=== PATIENT | male | born 1975 | race African-American/Black ===

== ENCOUNTER 2019-07-19 22:35 | Emergency (ER) | payer SELFPAY ==
[2019-07-19] MEDS ORDERED: KETOROLAC TROMETHAMINE 60 MG/2 ML VIAL ONE (22:47)
== END 2019-07-19 23:18 | disposition home or self-care (01) ==
LOC: EDH 22:35
DX: S90.31XA Contusion of right foot, initial encounter (principal); W23.0XXA Caught, crushed, jammed, or pinched between moving objects, initial encounter; Y93.89 Activity, other specified; Y92.098 Other place in other non-institutional residence as the place of occurrence of the external cause; Y99.8 Other external cause status
CPT/HCPCS: 73630; 96372; 99284; J1885

== ENCOUNTER 2019-07-21 22:43 | Inpatient (IN) | payer SELFPAY ==
[~2019-07-21] VITALS: Ht 185.4 cm; Wt 90.7 kg
[2019-07-21 23:46] LABS: ALBUMIN 3.7 g/dL (3.5-5.0); BASOPHILS % (AUTO) 0.2 % (0.0-5.0); BILIRUBIN,TOTAL 0.5 mg/dL (0.2-1.0); CREATININE 1.1 mg/dL (0.5-1.5); CRP QUANTITATIVE 116.8 mg/L (0.00-9.0); EOSINOPHILS % (AUTO) 0.6 % (0.0-8.0); HEMATOCRIT 38.7 % (42-54); LYMPHOCYTES % (AUTO) 9.1 % (21.0-51.0); MEAN CORPUSCULAR HEMOGLOBIN 30.6 pg (27.0-33.0); MEAN CORPUSCULAR HGB CONC 33.2 g/dL (32.0-36.0); MEAN CORPUSCULAR VOLUME 92.3 fL (79-99); NEUTROPHILS % (AUTO) 79.1 % (40.0-77.0); PLATELET COUNT (AUTO) 227 K/uL (130-400); POTASSIUM 3.5 mmol/L (3.5-5.1); RED BLOOD CELL COUNT(AUTO) 4.19 MIL/uL (4.50-6.20); RED CELL DISTRIBUTION WIDTH 13.8 % (11.0-15.5); TOTAL PROTEIN, SERUM 7.6 g/dL (6.0-8.3); WHITE BLOOD COUNT (AUTO) 12.7 K/uL (4.8-10.8)
[2019-07-22] VITALS (23 sets, daily range): BP systolic 84–154; BP diastolic 35–77
[2019-07-22] MEDS ORDERED: IOHEXOL-350 75 ML VIAL IV ONE (00:17)
[2019-07-22] MEDS ORDERED: ZOSYN 3.375GM+NS 50ML 50 ML IV ONE (00:17)
[2019-07-22] MEDS ORDERED: ONDANSETRON HCL 4 MG/2 ML VIAL ONE ×2 (00:17→21:30)
[2019-07-22] MEDS ORDERED: SODIUM CHLORIDE 0.9% 1000ML 1,000 ML IV ONE (00:17)
[2019-07-22] MEDS ORDERED: MORPHINE SULFATE 4 MG/1ML SYG ONE ×2 (00:17→02:48)
[2019-07-22 00:44] LABS: ERYTHROCYTE SEDIMENTATION RATE 25 MM/HR (0-15)
[2019-07-22] MEDS ORDERED: VANCOMYCIN 1GM+NS 250ML 250 ML IV ONE (01:37)
[2019-07-22 02:27] LABS: APPEARANCE,URINE Clear (CLEAR); BILIRUBIN,URINE Negative (NEGATIVE); COLOR,URINE Yellow (YELLOW); GLUCOSE, URINE (UA) Negative (NEGATIVE); KETONES,URINE 15 mg/dL (NEGATIVE); LEUKOCYTE ESTERASE ,URINE Negative (NEGATIVE); NITRATE,URINE Negative (NEGATIVE); OCCULT BLOOD,URINE Trace (NEGATIVE); PROTEIN,URINE Negative (NEGATIVE)
[2019-07-22] MEDS ORDERED: LIDOCAINE HCL 1% 20 ML VIAL ONE (02:30)
[2019-07-22] MEDS ORDERED: ONDANSETRON HCL 4 MG/2 ML VIAL IV PRN (02:45)
[2019-07-22] MEDS ORDERED: LACTULOSE 20 GM/30 ML UDCUP PO PRN (02:45)
[2019-07-22] MEDS ORDERED: VANCOMYCIN PROTOCOL PER PHARMACY IV SCH (02:45)
[2019-07-22] MEDS ORDERED: ACETAMINOPHEN 325 MG TAB PO PRN ×2 (02:45)
[2019-07-22 03:06] LABS: BACTERIA,URINE None Seen /HPF (None Seen); RBC,URINE 0-1 /HPF (0-1); WBC,URINE 0-1 /HPF (0-1)
[2019-07-22 03:06] LABS: RAPID PLASMA REAGIN NONREACTIVE (NONREACTIVE)
[2019-07-22] MEDS ORDERED: PHARMACY COMMUNICATION MISC SCH (03:30)
--- NOTE | 2019-07-22 04:25 | NUR ---
Admission note: Arrived to floor via stretcher from ER. AOX4. Pt. very cooperative. Placed in bed comfortably. VS checked and recorded. Assessment done. ( See CPOE flow chart for full assessment) Photo of the wound taken and attached to chart. Oriented to room and used of call light. Policies and procedures explained. Plan of care initiated. Monitored and observed for any unusual changes. Denies feeling of discomfort at this time. Verbalized he wants to rest and sleep. No apparent distress noted. Cared for and needs provided.
[2019-07-22] MEDS ORDERED: ZOSYN 3.375GM+NS 50ML 50 ML IV SCH (05:00)
[2019-07-22 06:04] LABS: BASOPHILS % (AUTO) 0.3 % (0.0-5.0); EOSINOPHILS % (AUTO) 0.9 % (0.0-8.0); HEMATOCRIT 37.2 % (42-54); LYMPHOCYTES % (AUTO) 9.3 % (21.0-51.0); MEAN CORPUSCULAR HEMOGLOBIN 30.8 pg (27.0-33.0); MEAN CORPUSCULAR HGB CONC 33.2 g/dL (32.0-36.0); MEAN CORPUSCULAR VOLUME 92.9 fL (79-99); MONOCYTES % (AUTO) 11.4 % (3.0-13.0); NEUTROPHILS % (AUTO) 78.1 % (40.0-77.0); PLATELET COUNT (AUTO) 230 K/uL (130-400); RED CELL DISTRIBUTION WIDTH 13.4 % (11.0-15.5); WHITE BLOOD COUNT (AUTO) 11.1 K/uL (4.8-10.8)
[2019-07-22] MEDS ORDERED: CLINDAMYCIN 900 MG/D5% WATER 50 ML IV SCH (06:15)
[2019-07-22] MEDS ORDERED: COMPOUND IV REFRIGERATED 1 EACH IVSOLN MISC PRN (06:15)
[2019-07-22 06:16] LABS: CREATININE 1.2 mg/dL (0.5-1.5); POTASSIUM 3.4 mmol/L (3.5-5.1)
[2019-07-22] MEDS ORDERED: POTASSIUM CHLORIDE 10% ELIXIR 20 MEQ/15 ML UDCUP PO PRN (06:45)
[2019-07-22] MEDS ORDERED: POTASSIUM CHLORIDE 20 MEQ ERTAB PO PRN (06:45)
[2019-07-22] MEDS ORDERED: POTASSIUM CHLORIDE 20MEQ/100ML 100 ML IV PRN (06:45)
[2019-07-22] MEDS ORDERED: LIDOCAINE HCL-MPF 1% 2ML VIAL IV PRN (06:45)
[2019-07-22 07:12] LABS: HEMOGLOBIN A1C 5.3 % (4.0-6.0)
[2019-07-22] MEDS ORDERED: SODIUM CHLORIDE 0.9% 250 ML IV ONE (09:17)
[2019-07-22] MEDS: ZOSYN 3.375GM+NS 50ML 50 ML IV SCH ×4 (09:20→21:16)
[2019-07-22] MEDS: MORPHINE SULFATE 2 MG/ML 1ML SYG IV PRN ×2 (09:30→18:19)
[2019-07-22] MEDS: FAMOTIDINE 20MG TAB 20 MG TAB PO SCH ×2 (09:33→21:00)
[2019-07-22] MEDS: VANCOMYCIN 1.25 GM in SODIUM CHLORIDE 0.9% 250 ML IV SCH ×2 (09:33→23:25)
[2019-07-22] MEDS: ENOXAPARIN SODIUM 40 MG/0.4 ML SYRINGE SQ SCH (09:34)
--- NOTE | 2019-07-22 10:56 | NUR ---
PODIATRY Dr. Gomez was notified of consult. Stated he will come to see patient later.
--- NOTE | 2019-07-22 16:45 | NUR ---
INITIAL MET W PT, NPO FOR I/D AT 7 PM TONIGHT. PT [employer], FROM [employer], HERE ON JOB, HURT FOOT - NOT WK[employer] WILL BE COMING TO HELP WITH DSG CHANGES AND IF HE NEEDS TO BE OFF FOOT FOR A WHILE. PT IS UNINSURED, EXPLAINED GOOD RX TO HIM FOR MEDS, EXPLAINED [facility] IS FOR LOCAL [facility]- IF HE IS STAYING AFTER [facility] WILL GIVE TO HIM, BUT PATIENT NOT SURE, MAY BE LEAVING BACK TO [place]. PENDING PROCEDURE Addendum: 07/22/19 at 1842 by JIMMIE FLORES RN CM Amended: Links added.
[2019-07-22] MEDS ORDERED: MIDAZOLAM HCL 1 MG/ML 2ML VIAL ONE (21:29)
[2019-07-22] MEDS ORDERED: LIDOCAINE PF 2% 5ML ABBOJECT ONE (21:29)
[2019-07-22] MEDS ORDERED: DEXAMETHASONE SOD PHOSPHATE 10MG/ML 1ML VIAL ONE (21:29)
[2019-07-22] MEDS ORDERED: FENTANYL CITRATE PF 50 MCG/1 ML 2ML VIAL ONE ×2 (21:30→21:41)
[2019-07-22] MEDS ORDERED: PROPOFOL 10 MG/ML 20ML VIAL IV ONE ×2 (21:30→21:43)
[2019-07-22] MEDS ORDERED: BUPIVACAINE/PF 0.25% 30ML VIAL IJ ONE (21:51)
[2019-07-23] VITALS (9 sets, daily range): BP systolic 102–141; BP diastolic 46–74
[2019-07-23 04:33] LABS: BASOPHILS % (AUTO) 0.5 % (0.0-5.0); EOSINOPHILS % (AUTO) 1.2 % (0.0-8.0); HEMATOCRIT 36.7 % (42-54); LYMPHOCYTES % (AUTO) 17.9 % (21.0-51.0); MEAN CORPUSCULAR HEMOGLOBIN 31.8 pg (27.0-33.0); MEAN CORPUSCULAR HGB CONC 34.2 g/dL (32.0-36.0); NEUTROPHILS % (AUTO) 68.4 % (40.0-77.0); PLATELET COUNT (AUTO) 218 K/uL (130-400); RED BLOOD CELL COUNT(AUTO) 3.94 MIL/uL (4.50-6.20); RED CELL DISTRIBUTION WIDTH 13.5 % (11.0-15.5); WHITE BLOOD COUNT (AUTO) 8.6 K/uL (4.8-10.8)
[2019-07-23 04:53] LABS: CREATININE 1.2 mg/dL (0.5-1.5); POTASSIUM 3.3 mmol/L (3.5-5.1)
[2019-07-23] MEDS: ZOSYN 3.375GM+NS 50ML 50 ML IV SCH ×3 (05:12→23:14)
--- NOTE | 2019-07-23 08:29 | NUR ---
PATIENT UPDATE Pt taken to OR last night at 2100 and came back at 2300. Bulky dressing over the rt foot, secured with the skip wrap. Extremity elevated over 2 pillows, toes warm to touch. Good dorsiflexion of the rt toes, pulses palpable, dressing dry and intact. Continues with the zosyn and vancomycin from pre op. Started on clear liquid last night, tolerated well. Slept well overnight,to be started on regular diet this am. Hasn't required anything for pain overnight. Afebrile post op, was running 101.7 pre op.
[2019-07-23] MEDS: ENOXAPARIN SODIUM 40 MG/0.4 ML SYRINGE SQ SCH (09:58)
[2019-07-23] MEDS: FAMOTIDINE 20MG TAB 20 MG TAB PO SCH ×2 (09:58→20:55)
[2019-07-23] MEDS: VANCOMYCIN 1.25 GM in SODIUM CHLORIDE 0.9% 250 ML IV SCH ×2 (09:58→20:55)
[2019-07-23] MEDS: MORPHINE SULFATE 2 MG/ML 1ML SYG IV PRN ×2 (09:59→18:52)
--- NOTE | 2019-07-23 17:00 | NUR ---
DRESSING CHANGE Changed dressing as ordered by Dr. Gomez. Skin surrounding incision shows wrinkling. Edema is reduced. Patient tolerated dressing change well. Denied needs. Questions answered. Minimal serosanguinous drainage at incision site.
[2019-07-24 04:07] VITALS: BP 137/81
[2019-07-24] MEDS: MORPHINE SULFATE 2 MG/ML 1ML SYG IV PRN ×2 (04:13→09:26)
[2019-07-24 05:07] LABS: CREATININE 1.2 mg/dL (0.5-1.5); POTASSIUM 3.8 mmol/L (3.5-5.1)
[2019-07-24 05:08] LABS: BASOPHILS % (AUTO) 0.4 % (0.0-5.0); EOSINOPHILS % (AUTO) 1.9 % (0.0-8.0); HEMATOCRIT 34.3 % (42-54); LYMPHOCYTES % (AUTO) 21.4 % (21.0-51.0); MEAN CORPUSCULAR HEMOGLOBIN 31.4 pg (27.0-33.0); MEAN CORPUSCULAR HGB CONC 34.3 g/dL (32.0-36.0); MEAN CORPUSCULAR VOLUME 91.6 fL (79-99); MONOCYTES % (AUTO) 11.7 % (3.0-13.0); NEUTROPHILS % (AUTO) 64.6 % (40.0-77.0); PLATELET COUNT (AUTO) 258 K/uL (130-400); RED BLOOD CELL COUNT(AUTO) 3.74 MIL/uL (4.50-6.20); RED CELL DISTRIBUTION WIDTH 13.6 % (11.0-15.5); WHITE BLOOD COUNT (AUTO) 6.3 K/uL (4.8-10.8)
[2019-07-24] MEDS: ZOSYN 3.375GM+NS 50ML 50 ML IV SCH ×2 (06:35→12:10)
[2019-07-24 07:30] VITALS: BP 139/72
[2019-07-24] MEDS: FAMOTIDINE 20MG TAB 20 MG TAB PO SCH (09:23)
[2019-07-24] MEDS: VANCOMYCIN 1.25 GM in SODIUM CHLORIDE 0.9% 250 ML IV SCH (09:23)
[2019-07-24] MEDS: ENOXAPARIN SODIUM 40 MG/0.4 ML SYRINGE SQ SCH (09:26)
[2019-07-24 11:00] VITALS: BP 116/75
[2019-07-24] MEDS ORDERED: LEVO500T89 PO (11:05)
[2019-07-24] MEDS ORDERED: LEVOFLOXACIN 500 MG TABLET PO SCH (11:15)
[2019-07-24 16:00] VITALS: BP 132/73
--- NOTE | 2019-07-24 16:30 | NUR ---
NURSING NOTE Patient was discharged by physicians. Prescription given to patient. Crutches given and he was able to use them without any problems. Wound care demonstrated by Dr. Gomez when he came for rounds and changed dressing himself. Patient denies any questions at this time. He requested to be allowed to finish his IV antibiotic and to shower before discharge.
== END 2019-07-24 17:45 | disposition home or self-care (01) | DRG 579 ==
LOC: EDH 22:43 → EDHIP 22:44 → OBSVTOIN 22:44 → 3BH 07-22 03:46
PROVIDERS: ADMIT Hospitalist; ATTEND Hospitalist
PROC: 0J9Q0ZZ Drainage of Right Foot Subcutaneous Tissue and Fascia, Open Approach (ICD-10-PCS; principal; 2019-07-22 21:30)
DX: L02.611 Cutaneous abscess of right foot (principal); M72.6 Necrotizing fasciitis; L03.115 Cellulitis of right lower limb; F17.210 Nicotine dependence, cigarettes, uncomplicated; B95.5 Unspecified streptococcus as the cause of diseases classified elsewhere; B96.4 Proteus (mirabilis) (morganii) as the cause of diseases classified elsewhere; E87.6 Hypokalemia
CPT/HCPCS: 36415; 73701; 80048; 80053; 80202; 81001; 83036; 85025; 85651; 86140; 86592; 86701; 87040; 87070; 87076; 87077; 87186; 87390; 99291; A6266; G0378; J1100; J1650; J2001; J2250; J2270; J2405; J2543; J2704; J3010; J3370; J3490; J7030; Q9967